=== PATIENT | female | born 1970 | race Caucasian/White ===

== ENCOUNTER 2021-01-27 12:04 | Emergency (ER) | payer MEDICAID ==
[~2021-01-27] VITALS: Ht 165 cm; Wt 100.0 kg
[2021-01-27 12:29] LABS: BASOPHILS # (AUTO) 0.1 10^3/uL (0.0-0.1); BASOPHILS % (AUTO) 1 % (0-10); EOSINOPHILS # (AUTO) 0.2 10^3/uL (0.0-0.3); EOSINOPHILS % (AUTO) 2 % (0-10); HEMATOCRIT 40 % (35-52); HEMOGLOBIN 12.9 g/dL (11.5-16.0); LYMPHOCYTES # (AUTO) 3.1 10^3/uL (1.0-4.0); LYMPHOCYTES % (AUTO) 30 % (12-44); MEAN CORPUSCULAR HEMOGLOBIN 30 pg (25-34); MEAN CORPUSCULAR HGB CONC 32 g/dL (32-36); MEAN CORPUSCULAR VOLUME 94 fL (80-99); MEAN PLATELET VOLUME 9.8 fL (9.0-12.2); MONOCYTES # (AUTO) 0.8 10^3/uL (0.0-1.0); MONOCYTES % (AUTO) 7 % (0-12); NEUTROPHILS # (AUTO) 6.3 10^3/uL (1.8-7.8); NEUTROPHILS % (AUTO) 60 % (42-75); PLATELET COUNT 436 10^3/uL (130-400); WHITE BLOOD COUNT 10.5 10^3/uL (4.3-11.0)
[2021-01-27] MEDS ORDERED: ASPIRIN 81 MG CHEW (CHILDREN'S ASA) PO ONE (12:30)
[2021-01-27] MEDS ORDERED: LORazepam INJ 2 MG/ML (ATIVAN) VIAL IVP PRN (12:30)
--- NOTE | 2021-01-27 12:31 | ED Chest Pain ---
General Chief Complaint: Chest Pain Stated Complaint: CP X5 DAYS Source: patient Exam Limitations: no limitations History of Present Illness Date Seen by Provider: January 27, 2021 Time Seen by Provider: 12:25 Initial Comments To ER by private vehicle with reports of left-sided chest pain. Present x1 week. Worsened by stress. No cough, no fevers, no other modifying factors. She states that she typically gets chest pain from stress. However, this will not go away. Is been constant for the past week. She states that her just got out of ICU. She does smoke about 10 cigarettes/day. She last used marijuana and methamphetamine on 01/02/2022 for her birthday. Timing/Duration: 1 week Severity/Quality: moderate Location: central Radiation: no radiation Activities at Onset: none ASA po ADULT LITERACY TEACHER: No NTG SL ADULT LITERACY TEACHER: No Associated Symptoms: shortness of breath Allergies and Home Medications Allergies Coded Allergies: codeine (Verified Allergy, Mild, 01/27/21) Penicillins (Verified Allergy, Unknown, 01/27/21) amitriptyline (Verified Allergy, Unknown, 01/27/21) prazosin (Verified Allergy, Unknown, 01/27/21) Patient Home Medication List Home Medication List Reviewed: Yes Review of Systems Review of Systems Constitutional: see HPI EENTM: No Symptoms Reported Respiratory: No Symptoms Reported Cardiovascular: See HPI, Chest Pain Gastrointestinal: No Symptoms Reported Genitourinary: No Symptoms Reported Musculoskeletal: no symptoms reported Skin: no symptoms reported Psychiatric/Neurological: See HPI, Anxiety Endocrine: No Symptoms Reported Hematologic/Lymphatic: No Symptoms Reported Physical Exam Vital Signs Vital Signs - First Documented 01/27/21 12:05 Temp 36.1 Pulse 96 Resp 18 B/P (MAP) 146/91 (109) Pulse Ox 96 O2 Delivery Room Air Capillary Refill : Height, Weight, BMI Height: '" Weight: lbs. oz. kg; BMI Method: General Appearance: No Apparent Distress, WD/WN Respiratory: No Accessory Muscle Use, No Respiratory Distress Cardiovascular: Regular Rate, Rhythm, Normal Peripheral Pulses Gastrointestinal: Non Tender, Soft Extremity: Normal Capillary Refill, Normal Inspection Neurologic/Psychiatric: Alert, Oriented x3 Skin: Normal Color, Warm/Dry Progress/Results/Core Measures Results/Orders Lab Results Laboratory Tests Test 01/27/21 12:15 Range/Units White Blood Count 10.5 4.3-11.0 10^3/uL Red Blood Count 4.32 3.80-5.11 10^6/uL Hemoglobin 12.9 11.5-16.0 g/dL Hematocrit 40 35-52 % Mean Corpuscular Volume 94 80-99 fL Mean Corpuscular Hemoglobin 30 25-34 pg Mean Corpuscular Hemoglobin Concent 32 32-36 g/dL Red Cell Distribution Width 14.4 10.0-14.5 % Platelet Count 436 H 130-400 10^3/uL Mean Platelet Volume 9.8 9.0-12.2 fL Immature Granulocyte % (Auto) 1 % Neutrophils (%) (Auto) 60 42-75 % Lymphocytes (%) (Auto) 30 12-44 % Monocytes (%) (Auto) 7 0-12 % Eosinophils (%) (Auto) 2 0-10 % Basophils (%) (Auto) 1 0-10 % Neutrophils # (Auto) 6.3 1.8-7.8 10^3/uL Lymphocytes # (Auto) 3.1 1.0-4.0 10^3/uL Monocytes # (Auto) 0.8 0.0-1.0 10^3/uL Eosinophils # (Auto) 0.2 0.0-0.3 10^3/uL Basophils # (Auto) 0.1 0.0-0.1 10^3/uL Immature Granulocyte # (Auto) 0.1 0.0-0.1 10^3/uL Percent Immature Platelet Fraction 1.3 0.0-7.6 % Prothrombin Time 13.2 12.2-14.7 SEC INR Comment 1.0 0.8-1.4 Activated Partial Thromboplast Time 31 24-35 SEC Sodium Level 138 135-145 MMOL/L Potassium Level 4.7 3.6-5.0 MMOL/L Chloride Level 105 98-107 MMOL/L Carbon Dioxide Level 19 L 21-32 MMOL/L Anion Gap 14 5-14 MMOL/L Blood Urea Nitrogen 12 7-18 MG/DL Creatinine 0.81 0.60-1.30 MG/DL Estimat Glomerular Filtration Rate > 60 BUN/Creatinine Ratio 15 Glucose Level 113 H 70-105 MG/DL Calcium Level 9.4 8.5-10.1 MG/DL Corrected Calcium 9.3 8.5-10.1 MG/DL Magnesium Level 2.0 1.6-2.4 MG/DL Total Bilirubin 0.3 0.1-1.0 MG/DL Aspartate Amino Transf (AST/SGOT) 26 5-34 U/L Alanine Aminotransferase (ALT/SGPT) 22 0-55 U/L Alkaline Phosphatase 82 40-136 U/L Myoglobin 41.6 10.0-92.0 NG/ML Troponin I < 0.028 <0.028 NG/ML B-Type Natriuretic Peptide < 10.0 <100.0 PG/ML Total Protein 7.7 6.4-8.2 GM/DL Albumin 4.1 3.2-4.5 GM/DL My Orders Orders - LUKE HERNANDEZ DENTAL HYGIENE ADMINISTRATIVE ASSISTANT Cbc With Automated Diff (01/27/21 12:09) Magnesium (01/27/21 12:09) Chest 1 View, Ap/Pa Only (01/27/21 12:09) Ekg Tracing (01/27/21 12:09) Comprehensive Metabolic Panel (01/27/21 12:09) Myoglobin Serum (01/27/21 12:09) Protime With Inr (01/27/21 12:09) Partial Thromboplastin Time (01/27/21 12:09) O2 (01/27/21 12:09) Monitor-Rhythm Ecg Trace Only (01/27/21 12:09) Lipid Panel (01/28/21 06:00) Ed Iv/Invasive Line Start (01/27/21 12:09) BNP (01/27/21 12:09) Fibrin Degradation Products (01/27/21 12:09) Troponin I (01/27/21 12:09) Aspirin Chewable Tablet (Baby Aspirin Ch (01/27/21 12:30) Lorazepam Injection (Ativan Injection) (01/27/21 12:30) Medications Given in ED Current Medications Medications Dose Ordered Sig/[place] Route Start Time Stop Time Status Last Admin Dose Admin Aspirin 324 mg ONCE ONCE PO 01/27/21 12:30 01/27/21 12:31 DC 01/27/21 12:42 324 MG Lorazepam 1 mg ONCE PRN IVP 01/27/21 12:30 01/27/21 12:42 1 MG Vital Signs/I&O 01/27/21 01/27/21 12:05 12:05 Temp 36.1 Pulse 96 Resp 18 B/P (MAP) 146/91 (109) Pulse Ox 96 O2 Delivery Room Air Room Air Departure Communication (Admissions) EKG reveals normal sinus rhythm normal intervals no ectopy no ST segment changes Impression Primary Impression: Chest pain Additional Impression: Anxiety Disposition: 01 HOME, SELF-CARE Condition: Stable Departure-Patient Inst. Decision time for Depature: 13:22 Referrals: [facility] (PCP) Primary Care Physician ROSE GREGG APRN (Family) Primary Care Physician Patient Instructions: Anxiety, Adult ED Scripts Hydroxyzine Pamoate (Vistaril) 25 Mg Capsule 25 MG PO Q4H, #10 CAP Prov: LUKE HERNANDEZ APRN 01/27/21 LUKE HERNANDEZ APRN January 27, 2021 12:31
[2021-01-27 12:40] LABS: ALBUMIN 4.1 GM/DL (3.2-4.5)
[2021-01-27 12:41] LABS: CHLORIDE 105 MMOL/L (98-107); PROTHROMBIN TIME PATIENT 13.2 SEC (12.2-14.7); SODIUM 138 MMOL/L (135-145)
[2021-01-27 12:42] LABS: CALCIUM 9.4 MG/DL (8.5-10.1)
[2021-01-27 12:43] LABS: GLUCOSE 113 MG/DL (70-105); TOTAL PROTEIN 7.7 GM/DL (6.4-8.2)
[2021-01-27 12:44] LABS: CARBON DIOXIDE 19 MMOL/L (21-32)
[2021-01-27 12:45] LABS: BILIRUBIN,TOTAL 0.3 MG/DL (0.1-1.0)
[2021-01-27 12:46] LABS: ALKALINE PHOSPHATASE 82 U/L (40-136); CREATININE SERUM 0.81 MG/DL (0.60-1.30); GFR ESTIMATED > 60
[2021-01-27 12:47] LABS: BUN/CREATININE RATIO 15; POTASSIUM 4.7 MMOL/L (3.6-5.0)
[2021-01-27 12:49] LABS: ALANINE AMINOTRANSFERASE 22 U/L (0-55)
[2021-01-27] MEDS ORDERED: HYDR25CA PO ×2 (13:22→17:23)
[2021-01-27 13:44] VITALS: BP 156/95
[2021-01-27] MEDS ORDERED: LIDOCAINE 2% VISCOUS 15 ML UDC PO ONE (13:45)
[2021-01-27] MEDS ORDERED: ANTACID SUSP 30 ML UDC (MYLANTA) PO ONE (13:45)
--- NOTE | 2021-01-27 13:45 | Diagnostic Imaging Report ---
Portable erect AP chest at 12:48. INDICATION: Chest pain COMPARISON: There are no prior exams available for comparison. FINDINGS: The heart size is within normal limits. The lungs are clear. The osseous structures, where visualized, are intact. IMPRESSION: Negative for active disease. Dictated by: Dictated on workstation # [id number]
== END 2021-01-27 13:46 | disposition home or self-care (01) ==
LOC: ER 12:08
DX: R07.9 Chest pain, unspecified (principal); F41.9 Anxiety disorder, unspecified; F17.210 Nicotine dependence, cigarettes, uncomplicated
CPT/HCPCS: 36415; 71045; 80053; 83735; 83874; 83880; 84484; 85025; 85379; 85610; 85730; 93005; 93041

== ENCOUNTER 2021-01-29 18:18 | Emergency (ER) | payer MEDICAID ==
[~2021-01-29] VITALS: Ht 166 cm; Wt 95.0 kg
[~2021-01-29 18:18] MED LIST: HYDR25CA PO
[2021-01-29] MEDS ORDERED: TETANUS,DIPTH,PERTUSS P/F (BOOSTRIX) 0.5 ML VIAL IM ONE (18:30)
[2021-01-29] MEDS ORDERED: KETOROLAC 60 MG/2 ML VIAL IM ONE (18:30)
--- NOTE | 2021-01-29 18:32 | ED Fall/Injury ---
General Chief Complaint: Upper Extremity Stated Complaint: FALL/HAND PAIN Source: patient Exam Limitations: no limitations History of Present Illness Date Seen by Provider: January 29, 2021 Time Seen by Provider: 18:20 Initial Comments Patient presents to the ER by private conveyance from home with chief complaint of she was walking her dog down a couple stairs and fell with her back against the stairs when he tripped her. She gashed open her hand just below her right fifth digit and put a Band-Aid over it. She did not strike her head nor lose consciousness. She is not on blood thinners. This occurred about 20 minutes prior to arrival. She is having some pain in her low back radiating down to her right buttock and some pain in her left ribs where she fell against the stairs she thinks maybe she broken her ribs. She not having shortness of breath just hurts when she takes a deep breath. She has not anything for pain Allergies and Home Medications Allergies Coded Allergies: codeine (Verified Allergy, Mild, 01/27/21) Penicillins (Verified Allergy, Unknown, 01/27/21) amitriptyline (Verified Allergy, Unknown, 01/27/21) prazosin (Verified Allergy, Unknown, 01/27/21) Home Medications Hydroxyzine Pamoate 25 Mg Capsule, 25 MG PO Q4H . Prescribed by: LUKE HERNANDEZ on 01/27/21 [id number] Patient Home Medication List Home Medication List Reviewed: Yes Review of Systems Review of Systems Constitutional: No chills, No diaphoresis, No fever, No malaise Eyes: Denies Blindness, Denies Blurred Vision Ears, Nose, Mouth, Throat: denies ear pain, denies ear discharge Respiratory: No cough, No short of breath Cardiovascular: see HPI, chest pain; No edema, No palpitations Gastrointestinal: No constipation, No diarrhea Musculoskeletal: see HPI, back pain; No joint pain Psychiatric/Neurological: Denies Anxiety, Denies Depressed All Other Systems Reviewed Negative Unless Noted: Yes Past Wcgiihx-Jknase-Ndtzdc Hx Patient Social History Alcohol Use: Denies Use Smoking Status: Current Everyday Smoker Type Used: Cigarettes Recent Hopitalizations: No Past Medical History Tubal Ligation Respiratory: No Cardiac: Yes Heart Attack Neurological: No Genitourinary: No Gastrointestinal: No Musculoskeletal: No Endocrine: No HEENT: No Cancer: No Psychosocial: No Integumentary: No Blood Disorders: No Physical Exam Vital Signs Vital Signs - First Documented 01/29/21 18:23 Temp 36.9 Pulse 91 Resp 18 B/P (MAP) 133/83 (100) Pulse Ox 96 O2 Delivery Room Air Capillary Refill : Height, Weight, BMI Height: '" Weight: lbs. oz. kg; 36.00 BMI Method: General Appearance: WD/WN, mild distress HEENT: PERRL/EOMI, pharynx normal Neck: full range of motion, normal inspection Cardiovascular: normal peripheral pulses, regular rate, rhythm Respiratory: lungs clear, normal breath sounds, no respiratory distress, no accessory muscle use, other (Left posterior lower ribs tender to palpation without ecchymosis deformity or crepitus palpable) Peripheral Pulses: 2+ Radial Pulses (R), 2+ Radial Pulses (L) Gastrointestinal: non tender, soft Extremities: other (Tenderness palpation over the right paraspinal lumbar and L5-S1 specifically. No step-off, deformity or tenderness over lumbar spine specifically.) Neurologic/Psychiatric: no motor/sensory deficits, alert, normal mood/affect, oriented x 3 Skin: normal color, warm/dry, other (1-1/2 cm linear superficial laceration over the medial portion of the right hand proximal to the fifth digit) Billy Coma Score Best Eye Response: (4) Open Spontaneously Best Verbal Response: (5) Oriented Best Motor Response: (6) Obeys Commands [place] Total: 15 Procedures/Interventions Wound Location: Upper Extremities Other Wound Location Right hand medial border Wound Length (cm): 1.5 Wound's Depth, Shape: superficial, linear, sub Q (1 cm) Wound Explored: clean Irrigated w/ Saline (ccs): 50 Betadine Prep?: Yes (Chlorhexidine) Wound Debrided: minimal Other Closure Supply: Wound Adhesive Sterile Dressing Applied?: Yes Progress/Results/Core Measures Results/Orders My Orders Orders - VIPUL NAILS Dipht,Pertuss(Acell),Tet Adult (Boostrix (01/29/21 18:30) Ketorolac Injection (Toradol Injection) (01/29/21 18:30) Ribs, Left 2-3 Views (01/29/21 18:26) Lumbar Spine - 2-3 Views (01/29/21 18:26) Medications Given in ED Current Medications Medications Dose Ordered Sig/[place] Route Start Time Stop Time Status Last Admin Dose Admin Diphtheria/ Tetanus/Acell Pertussis 0.5 ml ONCE ONCE IM 01/29/21 18:30 01/29/21 18:31 DC 01/29/21 18:40 0.5 ML Ketorolac Tromethamine 60 mg ONCE ONCE IM 01/29/21 18:30 01/29/21 18:31 DC 01/29/21 18:40 60 MG Vital Signs/I&O 01/29/21 01/29/21 18:23 18:40 Temp 36.9 36.9 Pulse 91 Resp 18 B/P (MAP) 133/83 (100) Pulse Ox 96 O2 Delivery Room Air Progress Progress Note : Time: 18:31 Progress Note She says she needs a tetanus vaccine so we will give her 1 as well as a shot of Toradol for pain. Get some plain films of her lumbar spine to rule out compression fracture. We will do a clean up on her right and cover it with cyanoacrylate. Diagnostic Imaging Diagonstic Imaging: Xray Plain Films/CT/US/NM/MRI: chest (Left ribs 2-3 view) Comments [facility], [place] NAME: ANGELES KIRKPATRICK Leonor MED REC#: [id number] PT STATUS: REG ER : 1970 PHYSICIAN: VIPUL NAILS MD ADMIT DATE: 01/29/21/ER Draft Date of Exam:01/29/21 RIBS, LEFT 2-3 VIEWS INDICATION: Fall with rib pain. FINDINGS: The left lung is clear. There is no pleural effusion or pneumothorax. There are no displaced rib fractures. IMPRESSION: No displaced rib fractures. Dictated on workstation # [id number] Dict: 01/29/211913 Trans: 01/29/211916 [facility] [id number] Interpreted by: SHE MCKENNA MD Electronically signed by: Reviewed: Reviewed by Me Diagonstic Imaging: Xray Plain Films/CT/US/NM/MRI: other (Lumbar spine 2-3 view) Comments NAME: GRACY KIRKPATRICKPamela Galvez MED REC#: [id number] PT STATUS: REG ER : 1970 PHYSICIAN: VIPUL NAILS MD ADMIT DATE: 01/29/21/ER Draft Date of Exam:01/29/21 LUMBAR SPINE - 2-3 VIEWS INDICATION: Back pain after a fall. 3 views were obtained. FINDINGS: The alignment is normal. There are mild degenerative changes. Vertebral body heights are well-maintained. No spondylolysis or spondylolisthesis. No acute fracture or traumatic subluxation. IMPRESSION: Mild lumbar spondylosis, otherwise unremarkable. Dictated on workstation # [id number] Dict: 01/29/211913 Trans: 01/29/211915 [facility] [id number] Interpreted by: SHE MCKENNA MD Electronically signed by: Reviewed: Reviewed by Me Departure Impression Primary Impression: Fall Qualified Codes: W19.XXXA - Unspecified fall, initial encounter Additional Impressions: Hand laceration Qualified Codes: S61.411A - Laceration without foreign body of right hand, initial encounter Lumbago Qualified Codes: M54.5 - Low back pain Bruised ribs Qualified Codes: S20.212A - Contusion of left front wall of thorax, initial encounter Disposition: 01 HOME, SELF-CARE Condition: Stable Departure-Patient Inst. Decision time for Depature: 19:21 [facility]errals: [facility] [place] (PCP) Primary Care Physician ROSE GREGG APRN (Family) Primary Care Physician Patient Instructions: Rib Fracture or Bruised Rib ED, Laceration Repair With Glue (DC) Add. Discharge Instructions: Keep the wound clean and dry. The glue will flake off on its own over the next week as you wash your hands and shower. Follow-up with your doctor to having increasing redness and swelling going up your arm. Ice applied to your hand back and ribs for 20 minutes every 2 hours while awake for the next 2 to 3 days can help reduce pain and swelling. Topical creams such as IcyHot Aspercreme etc. can be helpful for your pain. Tylenol 1000 mg every 8 hours as necessary for pain. Ibuprofen 800 mg every 8 hours necessary for pain. If you not seeing improvement in the next 2 to 4 weeks then follow-up with your primary care doctor. All discharge instructions reviewed with patient and/or family. Voiced understanding. Work/School Note: Work Release Form Date Seen in the Emergency Department: January 29, 2021 Return to Work: Jan 30, 2021 Restrictions: Need Release from Doctor Other Restrictions Listed Below: Do not lift greater than 20 pounds until 02/05/2021. VIPUL NAILS January 29, 2021 18:32
--- NOTE | 2021-01-29 19:17 | Diagnostic Imaging Report ---
INDICATION: Fall with rib pain. FINDINGS: The left lung is clear. There is no pleural effusion or pneumothorax. There are no displaced rib fractures. IMPRESSION: No displaced rib fractures. Dictated by: Dictated on workstation # [id number]
--- NOTE | 2021-01-29 19:17 | Diagnostic Imaging Report ---
INDICATION: Back pain after a fall. 3 views were obtained. FINDINGS: The alignment is normal. There are mild degenerative changes. Vertebral body heights are well-maintained. No spondylolysis or spondylolisthesis. No acute fracture or traumatic subluxation. IMPRESSION: Mild lumbar spondylosis, otherwise unremarkable. Dictated by: Dictated on workstation # [id number]
[2021-01-29 19:36] VITALS: BP 133/83
== END 2021-01-29 19:36 | disposition home or self-care (01) ==
LOC: EDUNIT# 18:18 → ER 18:19
DX: S61.411A Laceration without foreign body of right hand, initial encounter (principal); S20.212A Contusion of left front wall of thorax, initial encounter; M54.5 Low back pain; F17.210 Nicotine dependence, cigarettes, uncomplicated; Z23 Encounter for immunization; W10.9XXA Fall (on) (from) unspecified stairs and steps, initial encounter
CPT/HCPCS: 71100; 72100; 90715; 99282

== ENCOUNTER → 2021-05-10 | Outpatient (CLI) | payer MEDICAID | LOC: RAD 11:00 | PROVIDERS: ATTEND Nurse Practitioner | DX: Z12.31 Encounter for screening mammogram for malignant neoplasm of breast (principal) | CPT/HCPCS: 77063; 77067 ==

== ENCOUNTER → 2021-05-10 | Outpatient (CLI) | payer MEDICAID ==
[~2021-05-10] VITALS: Ht 165 cm; Wt 99.0 kg
[~2021-05-10] MED LIST changes: +CATHETER FLUSH 10 ML SYR IV PRN; +REGADENOSON 0.4 MG/5 ML SYR (LEXISCAN) IV ONE
[2021-05-10 08:57] VITALS: BP 141/79
--- NOTE | 2021-05-10 17:51 | NUCLEAR STRESS TEST ---
REGADENOSON NUCLEAR STRESS Date of procedure: 05/10/2021. Primary care provider: Marybeth Mccarthy APRN Admitting physician: Slade Ruiz Jr., MD. INDICATION: Chest pain. BASELINE ELECTROCARDIOGRAM: Sinus rhythm, normal tracing. STRESS TEST PROCEDURE: The patient was administered 0.4 mg of intravenous Regadenoson. The resting heart rate was 82 bpm and the peak heart rate was 115 bpm. The resting blood pressure was 141/79 mmHg and the minimum blood pressure was 140/95 mmHg. This represents a normal heart rate and a normal blood pressure response to Regadenoson. The test was stopped due to the protocol. There was no chest discomfort during the test. There were no arrhythmias during the test. There were no significant stress induced electrocardiogram changes. NUCLEAR PROCEDURE: The patient was administered 10.7 mCi of intravenous technetium 99m Tetrofosmin at rest for the rest images. The patient was subsequently administered 30.7 mCi of intravenous technetium 99m Tetrofosmin at peak stress for the stress images. Following an appropriate wait after each injection, imaging was obtained. The images were subsequently processed and reformatted in the usual views. Gated imaging was obtained. The image quality was adequate but with some degree of gastrointestinal and breast attenuation artifact. CT attenuation correction was used as a adjunct to standard imaging. Both the corrected and uncorrected images were reviewed for interpretation. NUCLEAR RESULTS: There was normal myocardial perfusion in all segments, other than breast attenuation artifact, without evidence of infarction or ischemia. There was normal left ventricular chamber size with an end-diastolic volume of 57 mL and an end-systolic volume of 14 mL. There was no evidence of transient ischemic dilatation. The TID ratio was 1. There was normal wall motion in all segments with a calculated ejection fraction of 75%. IMPRESSION: 1. Normal heart rate and blood pressure response to regadenoson. 2. There was no chest discomfort, arrhythmias, or electrocardiogram changes during the test. 3. There was normal myocardial perfusion in all segments without evidence of infarction or ischemia. 4. There was normal wall motion in all segments with a calculated ejection fraction of 75%. Certain portions of this document may have been dictated utilizing voice recognition technology. Inherent to this technology, typographical and grammatical errors may exist. As much as I am diligent to identify and correct these mistakes, some errors may remain in the document. SLADE RUIZ JR, MD May 10, 2021 17:51
== END ==
LOC: CARD 07:18
PROVIDERS: ATTEND Internal Medicine Cardiovascular Disease
DX: I51.7 Cardiomegaly (principal)
CPT/HCPCS: 78452; 93017; 93306; A9502

== ENCOUNTER 2021-09-21 09:28 | Emergency (ER) | payer MEDICAID ==
[~2021-09-21] VITALS: Ht 165.1 cm; Wt 104.3 kg
[~2021-09-21 09:28] MED LIST changes: -CATHETER FLUSH 10 ML SYR IV PRN; -REGADENOSON 0.4 MG/5 ML SYR (LEXISCAN) IV ONE
[2021-09-21] MEDS ORDERED: LACTATED RINGERS 1,000 ML IV ONE (09:45)
[2021-09-21] MEDS ORDERED: KETOROLAC 30 MG/ML VIAL IVP ONE (09:45)
[2021-09-21] MEDS ORDERED: ACETAMINOPHEN 500 MG TAB (TYLENOL) PO ONE (09:45)
--- NOTE | 2021-09-21 09:52 | ED Dyspnea ---
General Stated Complaint: HOME TEST +, CP,SOB,CHILLS,FEVER Source of Information: Patient Exam Limitations: No Limitations History of Present Illness Date Seen by Provider: Sep 21, 2021 Time Seen by Provider: 09:35 Initial Comments Patient to the ER by private conveyance from home with chief complaint that she is having shortness of air cough for the past month or so. She says in the last week started getting worse and she went to her doctor had a chest x-ray with a couple spots and a negative antigen COVID test. She repeated a COVID test last night because she had a fever of 101 and it was positive. She had a negative influenza swab earlier this week as well. She denies a long history of a states she been using her ProAir inhaler for the past several years and has been using it several times a day with improvement in her breathing. She did do a course of steroids and finished her last dose today. She has had 2 doses of [employer] COVID-19 vaccination and a flu shot this season. She is a smoker but denies any recreational drug use. She denies COPD or asthma. She is also concerned she might have a blood clot because she feels the blood clot traveling through her veins from 1 arm to the other, then to her legs, then back to her chest and finally to her head. She has not taken any Tylenol or NSAIDs today. She is on meloxicam typically but has not taken it today. She denies any nausea vomiting diarrhea or constipation. She denies a history of coronary disease. Allergies and Home Medications Allergies Coded Allergies: codeine (Verified Allergy, Mild, 01/27/21) Penicillins (Verified Allergy, Unknown, 01/27/21) amitriptyline (Verified Allergy, Unknown, 01/27/21) prazosin (Verified Allergy, Unknown, 01/27/21) Patient Home Medication List Home Medication List Reviewed: Yes Benzonatate (Tessalon Perles) 100 Mg Capsule, 100 MG PO Q6H PRN for COUGH Prescribed by: VIPUL NAILS on 09/21/21 1044 Hydroxyzine Pamoate (Vistaril) 25 Mg Capsule, 25 MG PO Q4H Prescribed by: LUKE HERNANDEZ on 01/27/21 1723 Ondansetron (Ondansetron Odt) 4 Mg Tab.rapdis, 4 MG PO Q6H PRN for NAUSEA/VOMITING Prescribed by: VIPUL NAILS on 09/21/21 1044 Review of Systems Review of Systems Constitutional: chills, fever, malaise EENTM: No ear discharge, No ear pain Respiratory: cough; No short of breath Cardiovascular: chest pain; No palpitations, No syncope Gastrointestinal: No abdominal pain, No constipation, No diarrhea, No nausea Genitourinary: No discharge, No dysuria Musculoskeletal: No back pain, No joint pain All Other Systems Reviewed Negative Unless Noted: Yes Past Wyuswrb-Ksocfj-Eackju Hx Patient Social History Tobacco Use?: Yes Use of E-Cig and/or Vaping dev: No Substance use?: No Alcohol Use?: No Seasonal Allergies Seasonal Allergies: Yes Past Medical History Surgeries: Yes Tubal Ligation Respiratory: Yes COPD Cardiac: Yes Heart Attack, High Cholesterol Neurological: Yes 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 oz. kg; 34.00 BMI Method: General Appearance: No Apparent Distress, Anxious HEENT: PERRL/EOMI, Pharynx Normal, Moist Mucous Membranes Neck: Full Range of Motion, Normal Inspection Respiratory: Lungs Clear, Normal Breath Sounds, No Accessory Muscle Use, No Respiratory Distress Cardiovascular: Regular Rate, Rhythm, No Edema, Normal Peripheral Pulses Peripheral Pulses: 2+ Radial Pulses (R), 2+ Radial Pulses (L) Gastrointestinal: Normal Bowel Sounds, No Organomegaly Extremity: Normal Capillary Refill, Normal Inspection, No Pedal Edema Neurologic/Psychiatric: Alert, Oriented x3, Other (Anxious affect) Skin: Normal Color, Warm/Dry Progress/Results/Core Measures Results/Orders Lab Results Laboratory Tests Test 09/21/21 09:55 Range/Units White Blood Count 7.4 4.3-11.0 10^3/uL Red Blood Count 4.56 3.80-5.11 10^6/uL Hemoglobin 13.2 11.5-16.0 g/dL Hematocrit 42 35-52 % Mean Corpuscular Volume 92 80-99 fL Mean Corpuscular Hemoglobin 29 25-34 pg Mean Corpuscular Hemoglobin Concent 32 32-36 g/dL Red Cell Distribution Width 14.6 H 10.0-14.5 % Platelet Count 351 130-400 10^3/uL Mean Platelet Volume 8.8 L 9.0-12.2 fL Immature Granulocyte % (Auto) 1 % Neutrophils (%) (Auto) 54 42-75 % Lymphocytes (%) (Auto) 34 12-44 % Monocytes (%) (Auto) 10 0-12 % Eosinophils (%) (Auto) 1 0-10 % Basophils (%) (Auto) 0 0-10 % Neutrophils # (Auto) 4.0 1.8-7.8 10^3/uL Lymphocytes # (Auto) 2.5 1.0-4.0 10^3/uL Monocytes # (Auto) 0.8 0.0-1.0 10^3/uL Eosinophils # (Auto) 0.0 0.0-0.3 10^3/uL Basophils # (Auto) 0.0 0.0-0.1 10^3/uL Immature Granulocyte # (Auto) 0.1 0.0-0.1 10^3/uL D-Dimer 0.28 0.00-0.49 UG/ML Sodium Level 135 135-145 MMOL/L Potassium Level 3.8 3.6-5.0 MMOL/L Chloride Level 103 98-107 MMOL/L Carbon Dioxide Level 24 21-32 MMOL/L Anion Gap 8 5-14 MMOL/L Blood Urea Nitrogen 14 7-18 MG/DL Creatinine 0.71 0.60-1.30 MG/DL Estimat Glomerular Filtration Rate 102 BUN/Creatinine Ratio 20 Glucose Level 96 70-105 MG/DL Calcium Level 8.9 8.5-10.1 MG/DL Corrected Calcium 8.9 8.5-10.1 MG/DL Total Bilirubin 0.4 0.1-1.0 MG/DL Aspartate Amino Transf (AST/SGOT) 22 5-34 U/L Alanine Aminotransferase (ALT/SGPT) 29 0-55 U/L Alkaline Phosphatase 77 40-136 U/L Troponin I < 0.028 <0.028 NG/ML C-Reactive Protein High Sensitivity 0.63 H 0.00-0.50 MG/DL Total Protein 7.3 6.4-8.2 GM/DL Albumin 4.0 3.2-4.5 GM/DL My Orders Orders - JESU,VIPUL J Covid-19 External Lab Results (09/21/21 09:35) Isolation Central Supply Req (09/21/21 09:35) Cbc With Automated Diff (09/21/21 09:43) Comprehensive Metabolic Panel (09/21/21 09:43) Hs C Reactive Protein (09/21/21 09:43) Fibrin Degradation Products (09/21/21 09:43) Chest 1 View, Ap/Pa Only (09/21/21 09:43) Ed Iv/Invasive Line Start (09/21/21 09:43) Lactated Ringers (Lr 1000 Ml Iv Solution (09/21/21 09:45) Ketorolac Injection (Toradol Injection) (09/21/21 09:45) Acetaminophen Tablet (Tylenol Tablet) (09/21/21 09:45) Ekg Tracing (09/21/21 09:52) Continuous Ekg Monitoring (09/21/21 09:52) Troponin I [place] (09/21/21 09:52) Medications Given in ED Current Medications Medications Dose Ordered Sig/[place] Route Start Time Stop Time Status Last Admin Dose Admin Acetaminophen 1,000 mg ONCE ONCE PO 09/21/21 09:45 09/21/21 09:47 DC 09/21/21 09:58 1,000 MG Ketorolac Tromethamine 30 mg ONCE ONCE IVP 09/21/21 09:45 09/21/21 09:47 DC 09/21/21 09:58 30 MG Lactated Ringer's 1,000 ml @ 0 mls/hr Q0M ONCE IV 09/21/21 09:45 09/21/21 09:47 DC 09/21/21 09:58 999 MLS/HR Vital Signs/I&O 09/21/21 09/21/21 09:37 09:37 Temp 36.6 Pulse 96 Resp 19 B/P (MAP) 143/100 (114) O2 Delivery Room Air Room Air Progress Progress Note #1: Time: 09:49 Progress Note Patient seems to be experiencing typical symptoms of COVID-19. She has aseptic vital signs with oxygen saturations of 100% on room air without labored breathing. She is breathing a little quicker at 22 breaths/min and because of her concern of a blood clot we will collect a D-dimer and some labs give her some IV fluids and Toradol for her symptoms as well as Tylenol. Chest x-ray. Progress Note #2: Time: 10:43 Progress Note Vitals and respiratory rate remain okay. Patient's symptoms been going on for a month so is difficult to know exactly when she truly was positive for COVID-19. She has pristine x-ray and a D-dimer is unremarkable. We discussed the risk, benefits and alternatives to monoclonal antibodies and will recommend conservative care. Initial ECG Impression Date: Sep 21, 2021 Initial ECG Impression Time: 09:54 Initial ECG Rate: 91 Initial ECG Rhythm: Normal Sinus Initial ECG Intervals: QT (489) Initial ECG Impression: Normal Comment Normal sinus rhythm without clinically relevant ST elevation or depression Diagnostic Imaging Diagonstic Imaging: Xray Plain Films/CT/US/NM/MRI: chest Comments [facility] [place] [place] NAME: ANGELES KIRKPATRICK MED REC#: [id number] PT STATUS: REG ER : 1970 PHYSICIAN: VIPUL NAILS MD ADMIT DATE: 09/21/21/ER Signed Date of Exam:09/21/21 CHEST 1 VIEW, AP/PA ONLY CHEST 1 VIEW, AP/PA ONLY Indication: Shortness of air Comparison: 01/27/2021 Findings: No focal airspace disease in the visualized lungs. Please note that the posterior lower lobes are poorly evaluated by portable radiography. No pleural effusion or pneumothorax. Normal cardiomediastinal silhouette. Impression: 1. No acute cardiopulmonary process by portable radiography. Dictated by: Dictated on workstation # [id number] Dict: 09/21/21 1028 Trans: 09/21/21 1028 [facility] [id number] Interpreted by: YAZ GARCIA MD Electronically signed by: YAZ GARCIA MD 09/21/21 1028 Reviewed: Reviewed by Me Departure Impression Primary Impression: COVID-19 Disposition: 01 HOME, SELF-CARE Condition: Stable Departure-Patient Inst. Decision time for Depature: 10:35 Referrals: [facility]JOSE RAMON (PCP) Primary Care Physician ROSE GREGG APRN (Family) Primary Care Physician Patient Instructions: COVID-19 (DC) Add. Discharge Instructions: Drink plenty of fluids. Tylenol 1000 mg every 8 hours necessary for body aches. You may resume your meloxicam tomorrow. In lieu of meloxicam you may use ibuprofen 800 mg or naproxen 2 tablets twice a day. Humidifiers and vapor rubs have been found helpful. Decongestant such as DayQuil, NyQuil, chlorpheniramine can be helpful for cough. Tessalon Perles 1 caplet every 6 hours as necessary for cough. Zofran 1 tablet every 6 hours necessary for nausea or vomiting. You may return off isolation 09/26/2021 if you are fever free for the final 24 hours. Scripts Benzonatate (TESSALON PERLES) 100 Mg Capsule 100 MG PO Q6H PRN for COUGH, #20 CAP 0 Refills Prov: VIPUL NAILS 09/21/21 Ondansetron (Ondansetron Odt) 4 Mg Tab.rapdis 4 MG PO Q6H PRN for NAUSEA/VOMITING, #10 TAB 0 Refills Prov: VIPUL NAILS 09/21/21 Work/School Note: Work Release Form Date Seen in the Emergency Department: Sep 21, 2021 Return to Work: Sep 26, 2021 Restrictions: Return-No Fever (24hrs) VIPUL NAILS Sep 21, 2021 09:52
[2021-09-21 10:04] LABS: BASOPHILS % (AUTO) 0 % (0-10); EOSINOPHILS % (AUTO) 1 % (0-10); HEMATOCRIT 42 % (35-52); HEMOGLOBIN 13.2 g/dL (11.5-16.0); LYMPHOCYTES # (AUTO) 2.5 10^3/uL (1.0-4.0); LYMPHOCYTES % (AUTO) 34 % (12-44); MEAN CORPUSCULAR HEMOGLOBIN 29 pg (25-34); MEAN CORPUSCULAR HGB CONC 32 g/dL (32-36); MEAN CORPUSCULAR VOLUME 92 fL (80-99); MEAN PLATELET VOLUME 8.8 fL (9.0-12.2); MONOCYTES # (AUTO) 0.8 10^3/uL (0.0-1.0); MONOCYTES % (AUTO) 10 % (0-12); NEUTROPHILS % (AUTO) 54 % (42-75); PLATELET COUNT 351 10^3/uL (130-400); WHITE BLOOD COUNT 7.4 10^3/uL (4.3-11.0)
[2021-09-21 10:27] LABS: CHLORIDE 103 MMOL/L (98-107); POTASSIUM 3.8 MMOL/L (3.6-5.0); SODIUM 135 MMOL/L (135-145)
[2021-09-21 10:28] LABS: CALCIUM 8.9 MG/DL (8.5-10.1)
[2021-09-21 10:29] LABS: GLUCOSE 96 MG/DL (70-105)
[2021-09-21 10:30] LABS: TOTAL PROTEIN 7.3 GM/DL (6.4-8.2)
--- NOTE | 2021-09-21 10:30 | Diagnostic Imaging Report ---
CHEST 1 VIEW, AP/PA ONLY Indication: Shortness of air Comparison: 01/27/2021 Findings: No focal airspace disease in the visualized lungs. Please note that the posterior lower lobes are poorly evaluated by portable radiography. No pleural effusion or pneumothorax. Normal cardiomediastinal silhouette. Impression: 1. No acute cardiopulmonary process by portable radiography. Dictated by: Dictated on workstation # [id number]
[2021-09-21 10:31] LABS: BILIRUBIN,TOTAL 0.4 MG/DL (0.1-1.0); CARBON DIOXIDE 24 MMOL/L (21-32)
[2021-09-21 10:33] LABS: ALKALINE PHOSPHATASE 77 U/L (40-136); CREATININE SERUM 0.71 MG/DL (0.60-1.30); GFR ESTIMATED 102
[2021-09-21 10:34] LABS: BUN/CREATININE RATIO 20
[2021-09-21 10:36] LABS: ALANINE AMINOTRANSFERASE 29 U/L (0-55)
[2021-09-21] MEDS ORDERED: BENZ100C18 PO (10:44)
[2021-09-21] MEDS ORDERED: ONDA4TAB11 PO (10:44)
[2021-09-21 11:15] VITALS: BP 136/81
== END 2021-09-21 11:15 | disposition home or self-care (01) ==
LOC: EDUNIT# 09:28 → ER 09:30
DX: U07.1 COVID-19 (principal); J44.9 Chronic obstructive pulmonary disease, unspecified; I25.2 Old myocardial infarction; F41.9 Anxiety disorder, unspecified; Z79.899 Other long term (current) drug therapy
CPT/HCPCS: 36415; 71045; 80053; 84484; 85025; 85379; 86141; 93005

== ENCOUNTER → 2022-01-16 | Outpatient (CLI) | payer MEDICAID ==
[~2022-01-16] MED LIST changes: +BENZ100C18 PO; +ONDA4TAB11 PO; +RT-ALBUTEROL SULF 2.5 MG/3 ML PRE-MIX VIAL INH ONE
== END ==
LOC: RT 10:45
PROVIDERS: ATTEND Nurse Practitioner Family
DX: R05.9 Cough, unspecified (principal); F17.200 Nicotine dependence, unspecified, uncomplicated; Z86.16 Personal history of COVID-19
CPT/HCPCS: 94060; 94726; 94729

== ENCOUNTER 2022-09-26 22:58 | Emergency (ER) | payer MEDICAID ==
[~2022-09-26] VITALS: Ht 165 cm; Wt 98.5 kg
[~2022-09-26 22:58] MED LIST changes: -RT-ALBUTEROL SULF 2.5 MG/3 ML PRE-MIX VIAL INH ONE
[2022-09-26 23:05] VITALS: BP 149/98
[2022-09-26] MEDS ORDERED: PANT40TA2 (23:15)
[2022-09-26] MEDS ORDERED: ASPI81TA16 (23:15)
[2022-09-26] MEDS ORDERED: FLUT9.9S16 (23:15)
[2022-09-26] MEDS ORDERED: ALBUTEROL (23:15)
[2022-09-26] MEDS ORDERED: BUPR300T98 (23:15)
[2022-09-26] MEDS ORDERED: PALI234D (23:15)
[2022-09-26] MEDS ORDERED: FLUT16SP22 (23:15)
[2022-09-26] MEDS ORDERED: MONT-40 (23:15)
[2022-09-26] MEDS ORDERED: LORA10TA7 (23:15)
[2022-09-26] MEDS ORDERED: MELO15TA39 (23:15)
[2022-09-26] MEDS ORDERED: LIDOCAINE 1% INJ 20 ML VIAL IJ ONE (23:15)
[2022-09-26] MEDS ORDERED: ATOR20TA66 (23:15)
[2022-09-26] MEDS ORDERED: RX-TRIMETH/SULFA. 160-800 MG (BACTRIM DS) TAB PPK#2 PO STA (23:45)
[2022-09-26] MEDS ORDERED: SULF1TAB38 PO (23:47)
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
== END 2022-09-26 23:50 | disposition home or self-care (01) ==
LOC: EDUNIT# 22:58 → ER 23:00
DX: S01.531A Puncture wound without foreign body of lip, initial encounter (principal); S01.511A Laceration without foreign body of lip, initial encounter; F17.210 Nicotine dependence, cigarettes, uncomplicated; E66.9 Obesity, unspecified; Z88.0 Allergy status to penicillin; Z88.5 Allergy status to narcotic agent; Z68.36 Body mass index [BMI] 36.0-36.9, adult; W54.0XXA Bitten by dog, initial encounter
CPT/HCPCS: 12051

== ENCOUNTER 2022-10-01 12:38 | Emergency (ER) | payer MEDICAID ==
[~2022-10-01] VITALS: Ht 167 cm; Wt 98.0 kg
[~2022-10-01 12:38] MED LIST changes: +ALBUTEROL; +ASPI81TA16; +ATOR20TA66; +BUPR300T98; +FLUT16SP22; +FLUT9.9S16; +LORA10TA7; +MELO15TA39; +MONT-40; +PALI234D; +PANT40TA2; +SULF1TAB38 PO
[2022-10-01 13:00] VITALS: BP_SYST 118
== END 2022-10-01 13:00 | disposition home or self-care (01) ==
LOC: EDUNIT# 12:38 → ER 12:40
DX: S01.551D Open bite of lip, subsequent encounter (principal); W54.0XXD Bitten by dog, subsequent encounter

== ENCOUNTER 2023-03-03 13:17 | Emergency (ER) | payer MEDICAID ==
[~2023-03-03] VITALS: Ht 165 cm; Wt 99.0 kg
[2023-03-03 13:25] VITALS: BP 157/91
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
[2023-03-03] MEDS ORDERED: ACETAMINOPHEN 500 MG TAB (TYLENOL) PO ONE (14:00)
[2023-03-03] MEDS ORDERED: KETOROLAC 30 MG/ML VIAL IM ONE (14:00)
== END 2023-03-03 15:05 | disposition home or self-care (01) ==
LOC: EDUNIT# 13:17 → ER 13:18
DX: S70.11XA Contusion of right thigh, initial encounter (principal); S30.1XXA Contusion of abdominal wall, initial encounter; S20.214A Contusion of middle front wall of thorax, initial encounter; E66.9 Obesity, unspecified; F17.200 Nicotine dependence, unspecified, uncomplicated; Z68.36 Body mass index [BMI] 36.0-36.9, adult; Y04.8XXA Assault by other bodily force, initial encounter
CPT/HCPCS: 82947

== ENCOUNTER 2023-04-01 13:45 | Emergency (ER) | payer MEDICAID ==
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
--- NOTE | 2023-04-01 14:16 | Diagnostic Imaging Report ---
INDICATION: heel pain. TECHNIQUE: 3 views of the right foot CORRELATION STUDY: None FINDINGS: The osseous structures of the foot are intact. Joint spaces are maintained. Alignment anatomic. Prominent ossification at the Achilles tendon insertion site. No significant plantar calcaneal spur formation. Soft tissues appearing unremarkable. IMPRESSION: 1. Negative for acute findings of the foot. Dictated by: Dictated on workstation # [id number]
[2023-04-01 14:33] VITALS: BP 113/66
== END 2023-04-01 14:33 | disposition home or self-care (01) ==
LOC: EDUNIT# 13:45 → ER 13:47
DX: M79.671 Pain in right foot (principal); E66.9 Obesity, unspecified; Z68.36 Body mass index [BMI] 36.0-36.9, adult
CPT/HCPCS: 73630

== ENCOUNTER 2023-06-10 05:31 | Outpatient (CLI) | payer MEDICAID ==
[~2023-06-10] VITALS: Ht 165.1 cm; Wt 96.4 kg
[2023-06-10] MEDS ORDERED: MULT-1136 PO (11:42)
[2023-06-10] MEDS ORDERED: CYCL10TA25 PO (11:44)
== END 2023-06-12 09:06 | disposition home or self-care (01) ==
LOC: PREOP 05:31
PROVIDERS: ATTEND Obstetrics & Gynecology
DX: Z01.818 Encounter for other preprocedural examination (principal)

== ENCOUNTER → 2023-06-26 | Outpatient (CLI) | payer MEDICAID ==
[~2023-06-26] VITALS: Ht 165.1 cm; Wt 95.0 kg
[~2023-06-26] MED LIST changes: +CYCL10TA25 PO; +LIDOCAINE 1% INJ 10 ML VIAL INJ ONE; +LIDOCAINE 1% INJ 10 ML VIAL ONE; +MULT-1136 PO
--- NOTE | 2023-06-26 15:07 | Diagnostic Imaging Report ---
INDICATION: Left breast nodule. Patient presents for ultrasound-guided biopsy. DETAILS OF THE PROCEDURE: The patient was brought to the sonographic suite and placed on the table in the supine position. Ultrasound imaging of the left breast was performed to evaluate for an appropriate entry site. The left breast was then prepped and draped in the usual sterile fashion. A small amount of 1% lidocaine was utilized for local anesthesia. A total of 4 core biopsies was obtained of the hypoechoic nodule at the 1 o'clock location of the left breast 5 cm from the nipple utilizing a 14-gauge Achieve needle. A marker clip was then deployed. Hemostasis was obtained using manual compression. The patient tolerated the procedure well and was sent for a post procedure mammogram in satisfactory condition. Mammographic images were performed on dedicated mammographic equipment. IMPRESSION: Successful ultrasound-guided core biopsy of the hypoechoic nodule at the 1 o'clock location of the left breast. Pathology results are currently pending. Dictated by: Dictated on workstation # [id number]
--- NOTE | 2023-06-27 09:15 | Diagnostic Imaging Report ---
INDICATION: Left breast nodule. The patient is status post ultrasound-guided left breast biopsy and clip placement. Unilateral left 2-D CC and ML mammography was performed after patient underwent ultrasound-guided left breast biopsy. There is a marker clip in the upper and outer aspects of the left breast at mid depth. IMPRESSION: Marker clip placement, status post ultrasound-guided left breast biopsy. Dictated by: Dictated on workstation # [id number]
== END ==
LOC: RAD 12:52
PROVIDERS: ATTEND Nurse Practitioner
DX: N63.21 Unspecified lump in the left breast, upper outer quadrant (principal)
CPT/HCPCS: 19083; 77065; A4648; G0279

== ENCOUNTER 2023-07-02 09:04 | Emergency (ER) | payer MEDICAID ==
[~2023-07-02 09:04] MED LIST changes: -LIDOCAINE 1% INJ 10 ML VIAL INJ ONE; -LIDOCAINE 1% INJ 10 ML VIAL ONE
--- NOTE | 2023-07-02 09:16 | ED Fall/Injury ---
General Chief Complaint: Trauma-Non Activation Stated Complaint: FALL | HEAD LACERATION History of Present Illness Date Seen by Provider: Jul 02, 2023 Time Seen by Provider: 09:16 Initial Comments 53-year-old female presents following a fall. Patient reports that she tripped over a cord fell and hit corner of the stove with her forehead. She does have an approximately 3-1/2 cm laceration on her right upper forehead. Patient is complaining some minor neck pain and was placed in c-collar upon arrival due to a previous neck fracture. Patient denies loss of consciousness or any other injury. She reports she is up-to-date on her tetanus. Allergies and Home Medications Allergies Coded Allergies: codeine (Verified Allergy, Mild, 01/27/21) Penicillins (Verified Allergy, Unknown, 01/27/21) amitriptyline (Verified Allergy, Unknown, 01/27/21) hydrocodone (Verified Allergy, Unknown, Rash, 06/10/23) prazosin (Verified Allergy, Unknown, 01/27/21) pregabalin (Verified Allergy, Unknown, Vomiting, 06/10/23) Patient Home Medication List Home Medication List Reviewed: Yes Atorvastatin Calcium (Atorvastatin Calcium) 20 Mg Tablet, (Reported) Entered as Reported by: ELYSE YARBROUGH on 09/26/222314 Bupropion HCl (Bupropion Xl) 300 Mg Tab.er.24h, (Reported) Entered as Reported by: ELYSE YARBROUGH on 09/26/222314 Cyclobenzaprine HCl (Cyclobenzaprine HCl) 10 Mg Tablet, 10 MG PO, (Reported) Entered as Reported by: Madison Pham on 06/10/23 1144 Fluticasone Furoate (Flonase Sensimist) 27.5 Mcg/Actuation [place].susp, (Reported) Entered as Reported by: ELYSE YARBROUGH on 09/26/222314 Fluticasone Propionate (Fluticasone Propionate) 50 Mcg/Actuation [place].susp, (Reported) Entered as Reported by: ELYSE YARBROUGH on 09/26/222314 Meloxicam (Meloxicam) 15 Mg Tablet, (Reported) Entered as Reported by: ELYSE YARBROUGH on 09/26/222314 Montelukast Sodium (Montelukast Sodium) 10 Mg Tablet, (Reported) Entered as Reported by: ELYSE YARBROUGH on 09/26/222314 Multivitamin (Multivitamin) 1 Each Tablet, 1 EACH PO, (Reported) Entered as Reported by: Madison Pham on 06/10/23 1142 Paliperidone Palmitate (Invega Sustenna) 234 Mg/1.5 Ml Syringe, (Reported) Entered as Reported by: ELYSE YARBROUGH on 09/26/222314 Pantoprazole Sodium (Protonix) 40 Mg Tablet., (Reported) Entered as Reported by: ELYSE YARBROUGH on 09/26/222314 [Albuterol] , (Reported) Entered as Reported by: ELYSE YARBROUGH on 09/26/222314 Review of Systems Review of Systems Constitutional: see HPI Eyes: No Symptoms Reported Ears, Nose, Mouth, Throat: see HPI Respiratory: no symptoms reported Cardiovascular: no symptoms reported Gastrointestinal: no symptoms reported Musculoskeletal: see HPI Skin: see HPI Past Ixkaryg-Ptqluh-Isjbrx Hx Immunizations Up To Date First/Initial COVID19 Vaccinat: X2 Second COVID19 Vaccination Morales: X2 Third COVID19 Vaccination Date: X2 Seasonal Allergies Seasonal Allergies: Yes Past Medical History Surgery/Hospitalization HX: LEEP, RIGHT OVARY, HTN, GERD, ASTHMA, DEPRESSION, Surgeries: Yes (LEEP; RIGHT OOPHORECTOMY, LEFT ELBOW) Oophorectomy, Tubal Ligation Respiratory: No Asthma, COPD Cardiac: Yes Heart Attack, High Cholesterol, Hypertension Neurological: Yes Neuropathy Reproductive Disorders: Yes (CERVICAL CA/DYSPLASIA--S/P LEEP) 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 Genitourinary: Yes (INCONTINENCE) Gastrointestinal: Yes (CONTROLLED WITH MEDICATION/ INTERFERON TREATMENT COMPLETE FOR HEPATITIS) Gastroesophageal Reflux, Hepatitis, Hiatal Hernia Musculoskeletal: Yes Degenerate Disk Disease, Fibromyalgia, Chronic Back Pain Endocrine: No (OBESITY) HEENT: No (TEETH REMOVED) Cancer: No Psychosocial: Yes (SUBSTANCE ABUSE) Anxiety, PTSD, Bipolar, Schizophrenia, Depression Integumentary: No Blood Disorders: No Physical Exam Vital Signs Vital Signs - First Documented 07/02/23 09:10 Temp 36.3 Pulse 88 Resp 18 B/P (MAP) 147/91 (109) Pulse Ox 98 Capillary Refill : Height, Weight, BMI Height: '" Weight: lbs. oz. kg; 34.85 BMI Method:Stated General Appearance: WD/WN, no apparent distress Neck: tender lateral, tender midline, other (C-collar in place) Respiratory: lungs clear, normal breath sounds Gastrointestinal: non tender, soft Extremities: normal range of motion, non-tender Neurologic/Psychiatric: no motor/sensory deficits, alert, normal mood/affect, oriented x 3 Skin: other (3.5 cm laceration right upper forehead) Billy Coma Score Best Eye Response: (4) Open Spontaneously Best Verbal Response: (5) Oriented Best Motor Response: (6) Obeys Commands Procedures/Interventions Wound Location: Scalp Other Wound Location right forehead Wound's Depth, Shape: linear Wound Explored: clean Anesthesia: 1% Lidocaine Volume Anesthetic (ccs): 5 Suture: Ethlion Suture Size: 4-0, 5-0 Number of Sutures: 3 Sterile Dressing Applied?: Yes Progress Patient tolerated well with no immediate complication Progress/Results/Core Measures Results/Orders My Orders Orders - CAT SOLANO DO Ct Head/Cervical Spine Wo (07/02/23 09:23) Lidocaine 1% Inj 20 Ml (Xylocaine 1% Inj (07/02/23 09:45) Acetaminophen Tablet (Acetaminophen Ta (07/02/23 09:56) Medications Given in ED Current Medications Medications Dose Ordered Sig/[place] Route Start Time Stop Time Status Last Admin Dose Admin Acetaminophen 500 mg STK-MED ONCE .ROUTE 07/02/23 09:56 07/02/23 09:58 DC 07/02/23 10:00 500 MG Lidocaine HCl 20 ml ONCE ONCE IJ 07/02/23 09:45 07/02/23 09:46 DC 07/02/23 10:00 20 ML Vital Signs/I&O 07/02/23 09:10 Temp 36.3 Pulse 88 Resp 18 B/P (MAP) 147/91 (109) Pulse Ox 98 Progress Progress Note : Progress Note Patient's head CT and cervical spine CT showed no acute findings. She does have some chronic cervical spine changes. C-collar was removed following negative CT. Patient had sutures placed. Patient was stable and discharged home. She is at increased risk for morbidity and mortality based on her social determinants of health. Diagnostic Imaging Diagonstic Imaging: CT Plain Films/CT/US/NM/MRI: c-spine, head Comments CT HEAD/CERVICAL SPINE WO PROCEDURE: CT head and CT cervical spine without contrast. TECHNIQUE: Multiple contiguous axial images were obtained through the brain and cervical spine without the use of intravenous contrast. Sagittal and coronal reformations through the cervical spine were then performed. Auto Exposure Controls were utilized during the CT exam to meet ALARA standards for radiation dose reduction. INDICATION: Traumatic injury to the head. Laceration to forehead. Head and neck pain. COMPARISON: None. FINDINGS: CT HEAD: The ventricles and cortical sulci are age-appropriate. There is no midline shift or mass-effect. No acute intra-axial hemorrhage is seen. There are no abnormal areas of increased or decreased density to suggest acute hemorrhage or edema. No extra-axial masses or collections are present. The bony calvarium is intact. The visualized paranasal sinuses are unremarkable. The mastoid air cells are clear. CT CERVICAL SPINE: Static alignment of the cervical spine is maintained. There is no significant mike or retrolisthesis. There is no evidence of jumped facets. Vertebral body heights are preserved. There is no acute fracture. No bony fragments are seen within the spinal canal. Degenerative changes are noted, greatest at the C5-C6 and C6-C7 levels, where there is intervertebral disc height loss with endplate osteophyte formations. Pre and paravertebral soft tissue structures are unremarkable. Included portions of the lung apices are clear. IMPRESSION: 1. No acute intracranial abnormality. No CT evidence of mass, acute infarct or intracranial hemorrhage. 2. No acute fracture or dislocation in the cervical spine. Reviewed: Reviewed by Me, Reviewed/Discussed Departure Impression Primary Impression: Fall on same level from stumbling as cause of accidental injury Additional Impressions: Laceration of forehead without complication Qualified Codes: S01.81XA - Laceration without foreign body of other part of head, initial encounter Minor head injury Qualified Codes: S09.90XA - Unspecified injury of head, initial encounter Disposition: 01 HOME, SELF-CARE Condition: Stable Departure-Patient Inst. Referrals: PETERSON FRANCO MD (PCP/Family) Primary Care Physician Patient Instructions: Laceration Repair With Stitches ED, Head injury in adults, Wound Care ED Add. Discharge Instructions: 1000 mg Tylenol 3 times daily, 800 mg ibuprofen 3 times daily. Please keep laceration clean with warm soapy water. Please place sterile dressing over the next 24 hours. Return to the ER for with your primary care provider in 10 days for suture removal. All discharge instructions reviewed with patient and/or family. Voiced understanding. CAT SOLANO DO Jul 02, 2023 09:16
[2023-07-02] MEDS ORDERED: LIDOCAINE 1% INJ 20 ML VIAL IJ ONE (09:45)
--- NOTE | 2023-07-02 09:47 | Diagnostic Imaging Report ---
PROCEDURE: CT head and CT cervical spine without contrast. TECHNIQUE: Multiple contiguous axial images were obtained through the brain and cervical spine without the use of intravenous contrast. Sagittal and coronal reformations through the cervical spine were then performed. Auto Exposure Controls were utilized during the CT exam to meet ALARA standards for radiation dose reduction. INDICATION: Traumatic injury to the head. Laceration to forehead. Head and neck pain. COMPARISON: None. FINDINGS: CT HEAD: The ventricles and cortical sulci are age-appropriate. There is no midline shift or mass-effect. No acute intra-axial hemorrhage is seen. There are no abnormal areas of increased or decreased density to suggest acute hemorrhage or edema. No extra-axial masses or collections are present. The bony calvarium is intact. The visualized paranasal sinuses are unremarkable. The mastoid air cells are clear. CT CERVICAL SPINE: Static alignment of the cervical spine is maintained. There is no significant mike or retrolisthesis. There is no evidence of jumped facets. Vertebral body heights are preserved. There is no acute fracture. No bony fragments are seen within the spinal canal. Degenerative changes are noted, greatest at the C5-C6 and C6-C7 levels, where there is intervertebral disc height loss with endplate osteophyte formations. Pre and paravertebral soft tissue structures are unremarkable. Included portions of the lung apices are clear. IMPRESSION: 1. No acute intracranial abnormality. No CT evidence of mass, acute infarct or intracranial hemorrhage. 2. No acute fracture or dislocation in the cervical spine. Dictated by: Dictated on workstation # [id number]
[2023-07-02] MEDS ORDERED: ACETAMINOPHEN 500 MG TABLET ONE (09:56)
[2023-07-02 10:16] VITALS: BP 147/91
== END 2023-07-02 10:24 | disposition home or self-care (01) ==
LOC: EDUNIT# 09:04 → ER 09:06
DX: S09.90XA Unspecified injury of head, initial encounter (principal); S01.81XA Laceration without foreign body of other part of head, initial encounter; M54.2 Cervicalgia; E66.9 Obesity, unspecified; Z68.34 Body mass index [BMI] 34.0-34.9, adult; W01.198A Fall on same level from slipping, tripping and stumbling with subsequent striking against other object, initial encounter
CPT/HCPCS: 12032; 70450; 72125

== ENCOUNTER → 2023-08-11 | Outpatient (CLI) | payer MEDICAID ==
[~2023-08-11] VITALS: Ht 165.1 cm; Wt 95.0 kg
== END | disposition home or self-care (01) ==
LOC: PREOP 05:30
PROVIDERS: ATTEND Obstetrics & Gynecology
DX: Z01.818 Encounter for other preprocedural examination (principal)